=== PATIENT | female | born 1990 | race Caucasian/White ===

== ENCOUNTER 2020-12-13 22:17 | Observation (INO) | payer OTHER ==
[~2020-12-13] VITALS: Ht 162.6 cm; Wt 62.1 kg
[~2020-12-13 22:17] MED LIST: DIAZEPAM5 MG PO; IBUPROFEN600 MG PO; NORCO 5-325 TA1 EACH PO; SYNTHROID125 MCG PO
[2020-12-13 23:06] LABS: HEMOGLOBIN 12.8 gm/dl (12.3-15.3); RED BLOOD COUNT 4.03 M/UL (4.00-5.10); WHITE BLOOD COUNT 12.8 K/UL (4.5-11.0)
[2020-12-13 23:22] LABS: BUN/CREATININE RATIO 16 (0-10)
[2020-12-14] MEDS ORDERED: VALIUM 5 MG TAB5 MG PO (03:13)
[2020-12-14] MEDS ORDERED: LEVOTHYROXINE175 MC1 PO (03:13)
[2020-12-14] MEDS ORDERED: PRENATAL VITAM1 EAC6 PO (03:13)
[2020-12-14] MEDS ORDERED: FOLIC ACID0.4 MG PO (03:13)
[2020-12-14] MEDS ORDERED: VENTOLIN HFA 66.7 GM INH (03:14)
[2020-12-14] MEDS ORDERED: COMBIVENT RESPIM4 GM INH (03:14)
[2020-12-14 06:07] LABS: HEMOGLOBIN 12.4 gm/dl (12.3-15.3)
== END 2020-12-14 14:21 | disposition home or self-care (01) ==
LOC: ER1 22:17 → M/S 12-14 00:25 → ZEROF 12-14 00:25 → M/S 12-14 03:13
PROVIDERS: Physician Assistant; ADMIT Obstetrics & Gynecology
DX: O26.31 Retained intrauterine contraceptive device in pregnancy, first trimester (principal); O99.331 Smoking (tobacco) complicating pregnancy, first trimester; F17.210 Nicotine dependence, cigarettes, uncomplicated; Z3A.11 11 weeks gestation of pregnancy; Z20.822 Contact with and (suspected) exposure to COVID-19
CPT/HCPCS: 36415; 76817; 80048; 84702; 85014; 85018; 85025; 86900; 86901; 99285; G0378; U0002